=== PATIENT | male | born 1965 | race Caucasian/White ===

== ENCOUNTER 2019-08-24 03:32 | Observation (INO) ==
[2019-08-24] MEDS ORDERED: ASPIRIN PO ONE (03:39)
[2019-08-24 04:06] LABS: BASO# 0.05 X1000 (0.0-0.2); BASO% 0.9 % (0.0-0.8); EOS# 0.54 X1000 (0.0-0.7); HEMATOCRIT 39.6 % (42.0-52.0); HEMOGLOBIN 13.7 g/dL (14.0-18.0); LYMPH# 1.77 X1000 (1.2-3.4); LYMPH% 32.8 % (20.5-51.1); MCH 33.6 PG (27-31); MCHC 34.6 g/dL (33-37); MCV 97.1 FL (81-99); MONO# 0.46 X1000 (0.11-0.59); MONO% 8.5 % (1.7-9.3); MPV 8.9 FL (7.4-10.4); NEUT# 2.57 X1000 (1.4-6.5); NEUT% 47.8 % (42.2-75.2); PLT 229 X1000 (130-400); RBC 4.08 XMIL (4.7-6.1); RDW 11.7 % (11.5-14.5); WBC 5.39 X1000 (4.8-10.8)
[2019-08-24 04:12] LABS: INR 1.04; PROTIME 13.8 Seconds (11.0-16.0)
[2019-08-24 04:13] LABS: PTT 31.8 Seconds (22.3-41.8)
[2019-08-24 04:30] LABS: AGAP 7; ALBUMIN 4.5 g/dL (3.5-5.0); ALKALINE PHOSPHATASE 86 U/L (32-122); BUN 13 mg/dL (8-22); CALCIUM 10.4 mg/dL (8.8-10.2); CHLORIDE 101 mmol/L (98-107); CK PROFILE 328 U/L (24-204); COSMO 290; CREATININE 1.1 mg/dL (0.7-1.2); ESTIMATED GFR > 60; GLUCOSE 154 mg/dL (70-104); GOT 23 U/L (10-34); GPT 20 U/L (10-44); SODIUM 144 mmol/L (136-145); TCO2 36 mmol/L (25-35); TOTAL BILIRUBIN 0.15 mg/dL (0.20-1.00); TOTAL PROTEIN 6.8 g/dL (6.3-8.3)
[2019-08-24 04:50] LABS: CK INDEX 3.3 (0.0-2.5); CK-MB 10.72 ng/mL (0.0-5.0)
[2019-08-24] MEDS ORDERED: NITROGLYCERIN SL PRN (05:06)
[2019-08-24] MEDS ORDERED: NITROGLYCERIN TOP ONE (05:06)
[2019-08-24] MEDS ORDERED: TYLENOL PO ONE (05:06)
--- NOTE | 2019-08-24 05:13 | PROVIDER DOCUMENTATION ---
HPI-Chest Pain - General Chief Complaint: Chest Pain Stated Complaint: CHEST PAIN/ARM PAIN/DIZZY SOB Time Seen by Provider: 08/24/19 04:56 Allergies/Adverse Reactions: Patient Allergies Allergy/AdvReac Type Severity Reaction Status Date / Time morphine Allergy Mild ITCHING Verified 08/24/19 04:48 Home Medications: Home Medication List Medication Instructions Recorded Confirmed Last Taken Type Paroxetine HCl 20 mg PO DAILY 02/17/17 04/18/19 02/16/17 History Gabapentin 300 mg PO TID 04/18/19 04/18/19 Unknown History Omeprazole 20 mg PO DAILY 04/18/19 04/18/19 Unknown History Oxycodone I.r. [Oxy Ir] 15 mg PO DAY 04/18/19 04/18/19 Unknown History - History of Present Illness-CP Location: reports: substernal, central Chest Pain Radiation: reports: no radiation Quality of Pain: reports: fullness, tightness Severity in ED: severe Onset/Duration: gradual, 3 days ago Timing: still present, getting worse Context/Activities at Onset: reports: none Modifying Factors: improves with: nothing, other (HAS TAKEN HIS ATENOLOL YESTERDAYA ND PAST 3 DAYS.) Associated Symptoms: reports: nausea, shortness of breath. denies: diaphoresis, fever/chills Nitro Today/Relief: no nitro taken today Aspirin Treatment Today: no aspirin today Prior Chest Pain/Cardiac Workup: reports: other (RECENT CHEST PAIN W/O PER DR SILVERIO INCLUDING ECHO AND GXT; PT HAS NO RESULTS YET. HTN TREATED WITH ATENOLOL) Review of Systems - Adult - REVIEW OF SYSTEMS - ADULT Constitutional: reports: no symptoms reported. denies: chills, fever Eyes: reports: no symptoms reported Ears, Nose, Mouth & Throat: reports: no symptoms reported Cardiovascular: reports: see HPI, chest pain. denies: edema, irregular heart rate, palpitations, syncope Respiratory: reports: see HPI, shortness of breath Gastrointestinal: reports: no symptoms reported, nausea Genitourinary: reports: no symptoms reported Musculoskeletal: reports: no symptoms reported Integumentary: reports: no symptoms reported Neurological: reports: no symptoms reported Psychiatric: reports: no symptoms reported Endocrine: reports: no symptoms reported Hematologic/Lymphatic: reports: no symptoms reported Allergic/Immunologic: reports: no symptoms reported All Other Systems: Reviewed and Negative Past History - Adult - PAST MEDICAL HISTORY-ADULT Review of Records: reports: Nursing Assessment Review, Medications Reviewed, Social history reviewed & non-contributory. Major Childhood Illnesses: reports: denies history Cardiovascular: reports: HTN, hyperlipidemia Respiratory: reports: denies history Gastrointestinal: reports: Crohn's, GERD, inflammatory bowel disease, IBS, ulcer Obstetrical/Gynecological: reports: denies history Genitourinary: reports: denies history Musculoskeletal: reports: chronic pain, intervertebral disc disease, other fractures (wrist with h/o osteomyelitis) Neurological: reports: denies history Endocrine/Immune: reports: denies history Other Conditions: reports: denies history - PRIOR SURGERIES/PROCEDURES Surgical/Procedure History: reports: appendectomy, EGD, cholecystectomy, orthopedic (extremity) - IMMUNIZATION STATUS Childhood Immunizations: See Nurse Assessment Flu Vaccine: See Nurse Assessment Physical Exam-General - PHYSICAL EXAM-ADULT Initial Vital Signs Reviewed: Yes - CONSTITUTIONAL General Appearance: alert, moderate distress - EYES Eyes: PERRL/EOMI, pink conjunctivae - HEAD, EARS, NOSE, MOUTH & THROAT HENMT: normocephalic/atraumatic, moist mucous membranes - NECK Neck: non-tender, full range of motion, supple - RESPIRATORY Respiratory: chest non-tender, lungs clear, normal breath sounds, no accessory muscle use - CARDIOVASCULAR Cardiovascular: regular rate, rhythm, no edema, no gallop, no JVD, no murmur, tachycardia - GASTROINTESTINAL (ABDOMEN) Abdominal Exam: normal bowel sounds, non tender, soft - MUSCULOSKELETAL Extremity: normal range of motion, non-tender, normal gait - SKIN Integumentary: normal color, normal turgor, warm/dry - NEUROLOGIC Neurologic: legal administrative assistant II-XII nml as tested, grossly normal, no motor/sensory deficits - PSYCHIATRIC Psych/Mental Status: normal mood/affect, normal thought content, normal thought process, oriented x 3 - HEART Score HEART Score: History: Highly Suspicious HEART Score: ECG: Normal HEART Score: Age: 45-65 Years HEART Score: Risk Factors for Atherosclerotic Disease: 1 or 2 Risk Factors HEART Score: Troponin: < or = Normal Limit Total HEART Score:: 4 Progress - PLAN OF CARE/RESULTS Progress/Plan/Lab Results: Vital Signs - 8 hr 08/24/19 03:40 Temperature 98.4 F Pulse Rate 93 H Respiratory Rate 20 Blood Pressure 201/141 O2 Sat by Pulse Oximetry 97 Laboratory Results - last 24 hr 08/24/19 08/24/19 08/24/19 03:55 03:55 03:55 WBC 5.39 RBC 4.08 L Hgb 13.7 L Hct 39.6 L MCV 97.1 MCH 33.6 H MCHC 34.6 RDW Std Deviation 11.7 Plt Count 229 MPV 8.9 Immature Gran % (Auto) 0.0 Neut % (Auto) 47.8 Lymph % (Auto) 32.8 [place] % (Auto) 8.5 Eos % (Auto) 10.0 Baso % (Auto) 0.9 H Immature Gran # (Auto) 0.00 Neut # (Auto) 2.57 Lymph # (Auto) 1.77 [place] # (Auto) 0.46 Eos # (Auto) 0.54 Baso # (Auto) 0.05 PT INR PTT (Actin FS) Sodium 144 Potassium 4.0 Chloride 101 Carbon Dioxide 36 H Anion Gap 7 BUN 13 Creatinine 1.1 Estimated GFR/1.73 m2 > 60 BUN/Creatinine Ratio 12 Glucose 154 H Calculated Osmolality 290 Calcium 10.4 H Total Bilirubin 0.15 L AST 23 ALT 20 Alkaline Phosphatase 86 Creatine Kinase 328 H Creatine Kinase Index 3.3 H CK-MB (CK-2) 10.72 H Troponin T Ele-R-Wcjfekyeoin Pept 61 Total Protein 6.8 Albumin 4.5 Globulin 2.3 Albumin/Globulin Ratio 2.0 08/24/19 08/24/19 03:55 03:55 WBC RBC Hgb Hct MCV MCH MCHC RDW Std Deviation Plt Count MPV Immature Gran % (Auto) Neut % (Auto) Lymph % (Auto) [place] % (Auto) Eos % (Auto) Baso % (Auto) Immature Gran # (Auto) Neut # (Auto) Lymph # (Auto) [place] # (Auto) Eos # (Auto) Baso # (Auto) PT 13.8 INR 1.04 PTT (Actin FS) 31.8 Sodium Potassium Chloride Carbon Dioxide Anion Gap BUN Creatinine Estimated GFR/1.73 m2 BUN/Creatinine Ratio Glucose Calculated Osmolality Calcium Total Bilirubin AST ALT Alkaline Phosphatase Creatine Kinase Creatine Kinase Index CK-MB (CK-2) Troponin T < 0.010 [id number]-Lhhskufdeko Pept Total Protein Albumin Globulin Albumin/Globulin Ratio Orders Category Date Time Status Cardiac Monitoring DIRECTED Care 08/24/19 03:39 Active Oxygen Therapy- ED Nursing DIRECTED Care 08/24/19 03:39 Active Saline Loc NOW Care 08/24/19 03:39 Active CHEST-2 VIEWS [RAD] Stat Exams 08/24/19 03:39 Taken CBC WITH ELECTRONIC DIFF [HEME] Stat Lab 08/24/19 03:55 Completed CK PROFILE [SP CHEM] Stat Lab 08/24/19 03:55 Completed COMPREHENSIVE METABOLIC PANEL [CHEM] Stat Lab 08/24/19 03:55 Completed PRO B-NATRIURETIC PEPTIDE Stat Lab 08/24/19 03:55 Completed PROTIME WITH INR [COAG] Stat Lab 08/24/19 03:55 Completed PTT [COAG] Stat Lab 08/24/19 03:55 Completed TROPONIN T Stat Lab 08/24/19 03:55 Completed Acetaminophen [Tylenol] Med 08/24/19 05:06 Discontinued 1,000 mg PO NOW ONE Aspirin Med 08/24/19 03:39 Discontinued 325 mg PO NOW ONE Nitroglycerin Med 08/24/19 05:06 Discontinued 1 inch TOP NOW ONE Nitroglycerin Sl [Nitroglycerin] Med 08/24/19 05:23 Discontinued 0.4 mg .ROUTE .STK-MED ONE Nitroglycerin Sl [Nitroglycerin] Med 08/24/19 05:06 Active 0.4 mg SL Q5M PRN PRN CP/SOB/Palp >45 yrs of Age Stat Oth 08/24/19 03:39 Ordered EKG [EKG] Stat Ther 08/24/19 03:39 Draft Result Diagrams: 08/24/19 03:55 08/24/19 03:55 - REASSESSMENT Reassessment #1 Time Reassessed: 05:46 Status: improving (CP BETTER, BP MUCH BETTER, STILL FEELS SOB. P OX 96% RM AIR.) - EKG 1 Time of EKG reading by physician:: 15:50 EKG Read and Signed by:: Garfield Campoverde EKG Interpretation (*Must complete 3 of following elements*): Abnormal Rate: 87 Rhythm: NSR [place]: normal QRS: LVH NM Interval: normal ST Wave: normal - CONSULTS/PCP/HOSPITALIST Notification #1 *Consult/PCP/Hospitalist*: DR ANGELES Time Discussed: 05:46 Consult Disposition: Admit (WILL PASSOFF TO DAY TEAM-) Departure - Departure Date of Disposition Decision: 08/24/19 Time of Disposition Decision: 05:49 DIAGNOSIS: Uncontrolled hypertension, Elevation of cardiac enzymes Chest pain Qualifiers: Chest pain type: unspecified Qualified Code(s): R07.9 - Chest pain, unspecified Disposition: ADMITTED INPATIENT 09 Certified Medical Emergency: Emergent Condition: Fair Referrals and Follow-Ups: Bijan Rolle MD [Primary Care Provider] - - Critical Care Note This patient required my direct & personal management of CC.: No Attestation - Physician/ KANDICE Attestation The physician spent face to face time with patient:: Yes Advanced Practice Provider documentation review:: Supervising physician onsite and consulted in the evaluation and care of this patient. The physician did have a face to face encounter with the patient.
[2019-08-24] MEDS ORDERED: NITROGLYCERIN ONE ×2 (05:23→12:04)
--- NOTE | 2019-08-24 05:38 | EKG Report ---
Test Performed on : 08/24/2019 03:44:29 AM Test Reason : CP Blood Pressure : / mmHG Vent. Rate : 087 BPM Atrial Rate : 087 BPM P-R Int : 164 ms QRS Dur : 092 ms QT Int : 358 ms P-R-T Axes : 037 -18 020 degrees QTc Int : 430 ms Normal sinus rhythm. Moderate voltage criteria for LVH, may be normal variant Borderline ECG When compared with ECG of 18-APR-2019 18:17, No significant change was found Unconfirmed Result
--- NOTE | 2019-08-24 06:34 | HISTORY AND PHYSICAL ---
PRIMARY CARE PHYSICIAN: Dr. Rolle. CHIEF COMPLAINT: Chest pain and shortness of breath x1 day. HISTORY OF PRESENTING ILLNESS: A 53-year-old male with a history of hyperlipidemia, BPH, and coronary disease who presented to the emergency department with a 1-day history of having chest pain. He describes it as pressure-like and states that he was shortness of breath. He was evaluated in the emergency department. Due to his presenting symptoms, it was thought that we will place him for observation for further evaluation and management. At the time of my examination, patient denied any headache, fever, chills, nausea, vomiting, diarrhea, hemoptysis, melena, or weight changes, but complained of chest discomfort and shortness of breath. The patient was given nitroglycerin in the ED, and he had some relief. PAST MEDICAL HISTORY: Includes hyperlipidemia, BPH, and coronary artery disease. PAST SURGICAL HISTORY: Right wrist surgery, cervical fusion, and back surgeries. ALLERGIES: Morphine. CURRENT MEDICATIONS: 1. Gabapentin 300 mg p.o. t.i.d. 2. Omeprazole 20 mg p.o. daily. 3. Oxycodone 15 mg 5 times a day. 4. Paroxetine 20 mg p.o. daily. SOCIAL HISTORY: No history of smoking. Admits to social alcohol use. Denies any illicit drug use. FAMILY HISTORY: Positive for coronary disease in father. REVIEW OF SYSTEMS: Fourteen point review of systems is as in HPI. Other systems negative. PHYSICAL EXAMINATION: GENERAL: Cooperative friendly male. He is resting more comfortably now. VITAL SIGNS: Temperature 98.4 degrees, pulse 92, respirations 20, and blood pressure 201/141. HEENT: Atraumatic, normocephalic. Extraocular movements intact. PERRLA. NECK: No masses. CHEST: Clear to auscultation. CARDIOVASCULAR: Regular rate and rhythm. ABDOMEN: Soft. Positive bowel sounds. EXTREMITIES: No edema. NEUROLOGIC: He is awake, alert, and oriented x3. : No bladder distention. SKIN: Warm. LABORATORIES AND STUDIES: Sodium 144, potassium 4.0, chloride 101, CO2 36, BUN 13, creatinine is 1.1, glucose is 154. CK-MB is 10.2. Troponin 0.010. ASSESSMENT: This is a 53-year-old male with a history of coronary disease, BPH, and hyperlipidemia who presented to emergency department with 1-day history of having chest pain. He was evaluated in the emergency department. Due to his presenting symptoms, he will require admission for further management. 1. Chest pain. 2. Coronary artery disease. 3. Hyperlipidemia. 4. Hypertension uncontrolled. PLAN: 1. We will admit patient to medical floor with telemetry. 2. Continue with cardiac workup. Check EKG and serial cardiac enzymes. Have patient continue on aspirin. We will use sublingual nitroglycerin p.r.n. chest pain. 3. We will consult Cardiology. 4. Restart his statin's. 5. We will monitor blood pressure closely. Resume antihypertensive agent. 6. Place patient on DVT prophylaxis with Lovenox. 7. We will continue to follow and reassess. Make further recommendations based on patient's clinical course. cc: Alfredito Dumont MD
[2019-08-24] MEDS ORDERED: TYLENOL PO PRN (07:46)
--- NOTE | 2019-08-24 07:46 | Diag Imaging Result Doc PS360 ---
EXAM: CHEST-2 VIEWS 08/24/2019 HISTORY: cp TECHNIQUE: PA and lateral chest COMMENT: There is elevation of the left hemidiaphragm which was not the case on 12/09/2014. The stomach appears somewhat distended with an air-fluid level. The heart size and primary vascularity are within normal limits. There has been fusion in the lower cervical spine since the previous examination. Considering the degree of elevation of the left hemidiaphragm the appearance of the lung verdugo is unchanged. IMPRESSION: Elevation of the left hemidiaphragm. The possibility of diaphragmatic paralysis cannot be excluded. Electronically signed by Marques Blevins 08/24/2019 7:44 AM
[2019-08-24] MEDS ORDERED: ASPIRIN PO SCH (09:00)
[2019-08-24] MEDS: DEMEROL IV PRN ×4 (09:06→22:50)
[2019-08-24] MEDS: ZOFRAN IV PRN ×2 (09:16→14:19)
[2019-08-24] MEDS: PRILOSEC PO SCH (09:18)
[2019-08-24] MEDS: LOVENOX SUBQ SCH (09:18)
--- NOTE | 2019-08-24 10:00 | CARDIOLOGY CONSULTATION ---
DATE: 08/24/2019 REASON FOR CONSULTATION: Cardiology was consulted for chest pain. HISTORY OF PRESENT ILLNESS: Mr. John Castrejon is a 53-year-old gentleman with history of hyperlipidemia, benign prostatic hypertrophy, a family history of coronary artery disease, who comes with complaints of having elevated blood pressure for the last 3 days associated. In addition, he has had chest pain. He describes his chest pain as pressure-like symptoms across his chest, which have been heavy at times and intermittently waxing and waning, associated with shortness of breath. There is no history of palpitations. There is no history of dizziness or syncope. He was seen in our office and underwent a GXT and an echocardiogram recently as well. The patient says that he has been having this chest pain for the last 3 days. His admission electrocardiogram revealed normal sinus rhythm, normal EKG. First set of cardiac enzymes revealed troponin was normal, his CK-MB was abnormal, and further lab work drawn today is pending. REVIEW OF SYSTEMS: A 14-point review of system was done. GI: There is no history of nausea, vomiting, diarrhea. There is no history of hematemesis or melena. Central Nervous System: No focal weakness to suggest a CVA, TIA. : There is no dysuria or hematuria. PAST MEDICAL HISTORY: 1. Hyperlipidemia. 2. Gastroesophageal reflux disease. 3. Strong family history of coronary artery disease. Father had multiple heart attacks. Per patient, the first one was when he was in his 50s. 4. Benign prostatic hypertrophy. PAST SURGICAL HISTORY: 1. Right wrist surgery. 2. Cervical fusion surgery. 3. Back surgery. HOME MEDICATIONS: Include: 1. Gabapentin. 2. Omeprazole. 3. Oxycodone. ALLERGIES: He is allergic to morphine. PHYSICAL EXAMINATION: Vital Signs: When he came in, blood pressure was 200/140. Today, his blood pressure is 146/96. Neck: Jugular venous pressure was normal. Heart: First and second heart sounds were heard. There is no S3 gallop. Respiratory: Normal air entry. There are no crepitations or rhonchi. Abdomen: Soft, nontender. There was no guarding or rigidity. Bowel sounds were heard. Central Nervous System: Alert, oriented, and was moving all 4 extremities. Extremities: No pedal edema. HEENT: Atraumatic, normocephalic. Pupils were equal and reacting to light. IMAGING AND LABORATORY DATA: Sodium 144, potassium 4.0, BUN 13, creatinine 1.1. Creatine kinase 328 with a CK-MB of 10.72, index of 3.3. First set of troponin was normal. Hematology: WBC 5.3, hemoglobin 13.7, hematocrit 39, platelet count of 229,000. Chest x-ray revealed no airspace disease, elevation of the left hemidiaphragm. ASSESSMENT AND PLAN: 1. Mr. John Castrejon is a 53-year-old gentleman with history of chest pain, Crohn's disease, gastroesophageal reflux disease, depression, hyperlipidemia, has had elevated blood pressures and chest pain. He underwent a GXT, which was unremarkable. However, he had chest discomfort on the treadmill, and electrocardiogram was negative for ischemia. Echocardiogram was unremarkable. He comes in with a 3-day history of chest pain with elevated blood pressure with abnormal CK-MB. Other lab work is pending. Given his family history and his symptoms, I have recommended that he undergo a left heart catheterization. Risks, benefits, and alternatives were explained. The patient will be set up for left heart catheterization shortly. The patient has unstable angina. Other lab work pending. 2. Hypertension. We will put him on beta-blockers 50 mg by mouth now and daily. 3. Continue with aspirin. 4. He has gastroesophageal reflux disease. Continue with omeprazole. 5. We will also check a fasting lipid profile. Thank you for the consult. Will follow hospital course. cc: Joey Dunaway MD
[2019-08-24] MEDS: LOPRESSOR PO SCH (10:14)
[2019-08-24 10:32] LABS: CK INDEX 3.2 (0.0-2.5); CK-MB 7.59 ng/mL (0.0-5.0)
[2019-08-24 10:34] LABS: CHOLESTEROL 153 mg/dL (0-200); HDL 37 mg/dL (35-55); LDL 44 mg/dL; TRIGLYCERIDES 359 mg/dL (39-160); VLDL 72 mg/dL
[2019-08-24] MEDS ORDERED: XYLOCAINE 1% ONE (12:01)
[2019-08-24] MEDS ORDERED: HEPARIN 1000 UNITS/NS 2,000 UNIT/1,000 ML IV.SOLN ONE (12:02)
[2019-08-24] MEDS ORDERED: VERSED ONE (12:59)
[2019-08-24] MEDS ORDERED: DILAUDID ONE (13:00)
[2019-08-24] MEDS ORDERED: CLAVE TWINSITE 32 IN 11959 ONE (13:01)
[2019-08-24] MEDS ORDERED: ANESTHESIA PB SET 88 IN 5742 ONE (13:01)
[2019-08-24] MEDS ORDERED: NS 1,000 ML ONE (13:01)
--- NOTE | 2019-08-24 15:35 | EKG Report ---
Test Performed on : 08/24/2019 3:16:00 PM Test Reason : post heart cath Blood Pressure : / mmHG Vent. Rate : 055 BPM Atrial Rate : 055 BPM P-R Int : 160 ms QRS Dur : 100 ms QT Int : 472 ms P-R-T Axes : 014 -06 019 degrees QTc Int : 451 ms Sinus bradycardia. Moderate voltage criteria for LVH, may be normal variant Borderline ECG When compared with ECG of 24-AUG-2019 03:44, (Unconfirmed) Vent. rate has decreased BY 32 BPM Unconfirmed Result
--- NOTE | 2019-08-24 20:43 | CARDIAC CATH REPORT ---
PROCEDURE NAME: - INDICATION: Patient with cardiac risk factors. Chest pain concerning for unstable angina. Positive MB fraction. PROCEDURES PERFORMED: 1. Left heart catheterization. 2. Selective coronary angiography. 3. Left ventriculogram. PROCEDURE IN DETAIL: Mr. Castrejon was brought to the catheterization laboratory in the fasting state. Informed consent was obtained. Prepped in usual fashion. He was anesthetized over the right radial artery after Fei's test proved adequate. A 5-Armenian sheath was placed via true Seldinger technique. Radial cocktail was administered. Catheters were introduced. Hemodynamic measurements were made in the ascending thoracic aorta. Coronary angiography was performed the multiple views using JL3.5 and JR4 diagnostic catheters. At the conclusion of the procedure, all sheaths and catheters were removed. TR band was left inflated at 8 mL of air with good capillary refill and good hemostasis. There was 50 mL of IV contrast and 5-10 mL of blood loss. FINDINGS: 1. The left main is a large vessel originating from the left coronary cusp. 2. Left anterior descending and circumflex vessels are both quite large originating from the left main. There are minor luminal irregularities noted throughout both vessels no significant obstructing lesions. Notably there was somewhat sluggish flow noted throughout all coronaries. 3. Right coronary originates from the right coronary cusp. It is a large dominant vessel. Minor luminal irregularities are noted throughout the vessel with again sluggish flow noted. 4. Left ventriculogram demonstrates an EF of 55%. No obvious segmental wall motion abnormalities. 5. Aortic blood pressure 135/81 with a mean of 103. Left ventricle pressure of 135/6 with an LVEDP of 14. ASSESSMENT: Mr. Castrejon is a 53-year-old gentleman who presented with chest pain concerning for possible unstable angina. PLAN: At this point. He has no flow-limiting coronary disease. We will continue with aggressive secondary risk factor modification considering the findings of minor coronary disease as detailed above. cc: Luke Hardy MD
[2019-08-25] MEDS: DEMEROL IV PRN ×3 (03:24→11:57)
[2019-08-25 06:06] LABS: BASO# 0.03 X1000 (0.0-0.2); BASO% 0.6 % (0.0-0.8); EOS# 0.37 X1000 (0.0-0.7); EOS% 6.9 % (0.0-10.0); HEMATOCRIT 41.7 % (42.0-52.0); HEMOGLOBIN 14.5 g/dL (14.0-18.0); LYMPH# 1.17 X1000 (1.2-3.4); LYMPH% 21.8 % (20.5-51.1); MCH 33.6 PG (27-31); MCHC 34.8 g/dL (33-37); MCV 96.8 FL (81-99); MONO# 0.41 X1000 (0.11-0.59); MONO% 7.6 % (1.7-9.3); MPV 9.5 FL (7.4-10.4); NEUT# 3.39 X1000 (1.4-6.5); NEUT% 63.1 % (42.2-75.2); PLT 204 X1000 (130-400); RBC 4.31 XMIL (4.7-6.1); RDW 11.7 % (11.5-14.5); WBC 5.37 X1000 (4.8-10.8)
[2019-08-25] MEDS: PRILOSEC PO SCH (06:15)
[2019-08-25] MEDS: ZOFRAN IV PRN (08:02)
[2019-08-25] MEDS: LOVENOX SUBQ SCH (08:02)
[2019-08-25] MEDS: LOPRESSOR PO SCH (08:03)
[2019-08-25] MEDS ORDERED: FLU VACCINE IM ONE (08:10)
[2019-08-25] MEDS ORDERED: G.I. COCKTAIL PO ONE (08:35)
[2019-08-25] MEDS ORDERED: PROTONIX IV ONE (08:43)
[2019-08-25] MEDS ORDERED: SODIUM CHLORIDE 0.9% INJ ONE (08:43)
[2019-08-25] MEDS ORDERED: ASPIRIN EC PO SCH (09:00)
--- NOTE | 2019-08-25 09:28 | Diag Imaging Result Doc PS360 ---
EXAM: CT ABDOMEN/PELVIS W/O CONTRAST 08/25/2019 HISTORY: epigastric pain TECHNIQUE: This exam was performed using automated exposure control, adjustment of mA or kV according to patient size, and/or use of iterative reconstruction technique. COMMENT: There is atelectasis present in the left lower lobe. This is slightly worse than on the previous study of 04/18/2019. There are granulomatous calcifications in the right hilum. The left hemidiaphragm is considerably elevated. There are granulomata in the spleen. The adrenal glands are not enlarged. The spleen is not enlarged. There is no evidence of biliary dilatation. The gallbladder has been resected. There are granulomata in the liver. There is an apparent cyst near the darryl hepatis which was also present at the time the previous study. There is nephrolithiasis on the right with a 3 mm stone in the lower pole. There is a similar sized stone in the mid collecting system. There is no evidence of hydronephrosis. No stones are seen on the left. There has been previous appendectomy. There is some stool in the colon. The small bowel is not distended. There is no evidence of abdominal aortic aneurysm. Postsurgical changes are seen in the lower lumbar spine and there is scoliosis with convexity to the left. There is a fair amount of stool in the rectosigmoid colon. The urinary bladder is not distended. There is no evidence of ureterolithiasis. IMPRESSION: Right nephrolithiasis. Constipation. No evidence of obstructive uropathy. Electronically signed by Marques Blevins 08/25/2019 9:26 AM
[2019-08-25 12:16] VITALS: BP 148/97
--- NOTE | 2019-08-26 06:07 | DISCHARGE SUMMARY ---
ADMISSION DATE: 08/24/2019 DISCHARGE DATE: 08/25/2019 DISCHARGE DIAGNOSES: 1. Non cardiac chest pain. 2. Coronary artery disease. 3. Gastroesophageal reflux disease versus gastritis. 4. Hyperlipidemia. 5. Hypertension. CONSULTATIONS: Dr. Dunaway from Cardiology. PROCEDURES: 1. Chest x-ray done on admission showed elevation of the left hemidiaphragm, the possibility of the diaphragmatic paralysis cannot be excluded. 2. Cardiac catheterization showed no flow limiting coronary artery disease. 3. The ejection fraction found to be 55%. 4. Abdominal and pelvic CT showed right nephrolithiasis and constipation, but no evidence of obstructive uropathy. HOSPITAL COURSE: In brief, this is a 53-year-old male with past medical history of hyperlipidemia, BPH, and coronary artery disease who presented to the emergency department complaining of a 1-day history of having chest pain and chest pressure. In that regard, because of his risk factors, Cardiology was consulted. We have checked troponins 3 times were negative. Then, he had a left heart catheterization with results as above. Patient was actually complaining of some epigastric pain. We provided him a GI cocktail. We are going to increase the dose of Protonix to 40 mg p.o. daily. The patient feels much better. The patient is going to be discharged in stable condition. He is going to be seen by his primary care doctor in 1 week. DISCHARGE PHYSICAL EXAMINATION: Vital Signs: Temperature 98 degrees, heart rate 67, respiratory rate 18, blood pressure 133/89, and O2 saturation 99% on room air. General: This is a 53-year- old male lying in bed in no acute distress. Cardiovascular: S1, S2 heard. No murmurs, gallops, or rubs. Regular rate and rhythm. Respiratory: Clear bilaterally to auscultation. No work of breathing or using accessory muscles. Abdomen: Soft and nontender to palpation. Bowel sounds present. No organomegaly. Extremities: No clubbing, cyanosis, or edema. Peripheral pulses present in both legs. Neurological: The patient alert and oriented x3. Moves all 4 extremities. DISCHARGE DISPOSITION: Home to self-care. LIST OF MEDICATIONS: We are not going to make any changes to his current medications. cc: George Fernandez MD
== END 2019-08-25 13:19 | disposition home or self-care (01) ==
LOC: ED 03:32 → 4N 03:32 → SUATTDRO 07:05 → 3N 07:11 → 2N 14:11
PROVIDERS: ATTEND Internal Medicine